=== PATIENT | male | born 1990 | race African-American/Black ===

== ENCOUNTER 2023-10-29 04:06 | Emergency (ER) | payer OTHER ==
[~2023-10-29] VITALS: Ht 188 cm; Wt 84.1 kg
[2023-10-29 08:31] VITALS: TEMP 98.9
[2023-10-29 12:05] VITALS: BP 117/70; PULSE 66; RESP 18
== END 2023-10-29 14:56 | disposition home or self-care (01) ==
LOC: EMS 04:06
DX: R10.84 Generalized abdominal pain (principal); R51.9 Headache, unspecified; F17.210 Nicotine dependence, cigarettes, uncomplicated; Z98.890 Other specified postprocedural states
CPT/HCPCS: 70450; 71045; 74176; 99284